=== PATIENT | male | born 1990 | race African-American/Black ===

== ENCOUNTER 2021-11-14 20:48 | Emergency (ER) | payer SELFPAY ==
[~2021-11-14] VITALS: Ht 185.4 cm; Wt 81.2 kg
[2021-11-14] MEDS ORDERED: AZITHROMYCIN 500 MG TABLET PO ONE (21:30)
[2021-11-14] MEDS ORDERED: CEFTRIAXONE SODIUM 500 MG/VIAL IM ONE (21:30)
[2021-11-14 23:15] VITALS: BP 124/78
[2021-11-14] MEDS ORDERED: AZITHROMYCIN 500 MG TABLET PO NR (23:15)
[2021-11-14] MEDS ORDERED: CEFTRIAXONE SODIUM 500 MG/VIAL IM NR (23:15)
[2021-11-19 06:16] LABS: NEISSERIA GONORRHOEAE NAA Negative (Negative)
== END 2021-11-14 23:15 | disposition home or self-care (01) ==
LOC: ER 20:48
DX: Z11.3 Encounter for screening for infections with a predominantly sexual mode of transmission (principal); A64 Unspecified sexually transmitted disease
CPT/HCPCS: 87491; 87591; 96372; 99283; J0696